=== PATIENT | female | born 1975 | race Caucasian/White ===

== ENCOUNTER → 2018-10-28 | Outpatient (CLI) | payer MEDICAID ==
[2016-07-10 17:39] VITALS: BP 144/90
[~2018-10-28] MED LIST: PRILOSEC 20MG20 MG PO
== END ==
LOC: RAD 14:10
DX: M17.0 Bilateral primary osteoarthritis of knee (principal); N64.4 Mastodynia; N63.0 Unspecified lump in unspecified breast; F41.9 Anxiety disorder, unspecified; F32.9 Major depressive disorder, single episode, unspecified; N76.0 Acute vaginitis; B37.3 Candidiasis of vulva and vagina

== ENCOUNTER → 2018-11-03 | Outpatient (CLI) | payer MEDICAID ==
[2016-07-10 17:39] VITALS: BP 144/90
== END ==
LOC: RAD 10:01
DX: M22.2X1 Patellofemoral disorders, right knee (principal); M25.562 Pain in left knee; M25.561 Pain in right knee

== ENCOUNTER → 2018-11-11 | Outpatient (CLI) | payer MEDICAID ==
[2016-07-10 17:39] VITALS: BP 144/90
[2018-11-11 09:07] LABS: POTASSIUM 4.3 mmol/L (3.6-5.0); TOTAL BILIRUBIN 0.5 mg/dL (0.2-1.3); TOTAL PROTEIN 6.9 g/dL (6.3-8.2)
[2018-11-11 09:28] LABS: EOS # 0.4 (0.04-0.40); EOS % 4.3 % (1.0-5.0); HEMATOCRIT 45.1 % (37.0-47.0); HEMOGLOBIN 14.6 g/dL (12.5-16.0); LYMPH# 2.7 (1.50-4.00); MEAN CELL VOLUME 86 fl (78-100); MEAN CORPUSCULAR HEMOGLOBIN 28 pg (27-31); MEAN CORPUSCULAR HGB CONC 32 g/dL (33-37); MEAN PLATELET VOLUME 11.7 fl (7.4-10.4); MONO # 0.6 (0.20-0.80); PLATELET COUNT 270 K/mm3 (130-400); RED BLOOD COUNT 5.27 M/mm3 (4.10-5.30); RED CELL DISTRIBUTION WIDTH 14.4 % (11.5-14.5); WHITE BLOOD COUNT 8.7 K/mm3 (4.8-10.8)
== END ==
LOC: LAB 08:37
PROVIDERS: Physician Assistant
DX: R63.5 Abnormal weight gain (principal); R53.83 Other fatigue; M25.561 Pain in right knee

== ENCOUNTER 2019-01-27 10:00 | Outpatient (RCR) | payer MEDICAID ==
[2016-07-10 17:39] VITALS: BP 144/90
[2019-02-09] MEDS ORDERED: XANAX0.5 M1 PO (11:13)
[2019-02-09] MEDS ORDERED: CIPRO500 M1 PO (11:14)
== END 2019-02-07 | disposition home or self-care (01) ==
LOC: PT
DX: M22.2X1 Patellofemoral disorders, right knee (principal); M22.2X2 Patellofemoral disorders, left knee; M62.89 Other specified disorders of muscle

== ENCOUNTER → 2019-03-16 | Outpatient (CLI) | payer MEDICAID ==
[2019-02-09 11:12] VITALS: BP 143/91
[~2019-03-16] MED LIST changes: +CIPRO500 M1 PO; +XANAX0.5 M1 PO
== END ==
LOC: PT 09:59 → EDSTATUS 10:00 → PT 10:00
DX: M22.2X2 Patellofemoral disorders, left knee (principal); M22.2X1 Patellofemoral disorders, right knee; S76.111A Strain of right quadriceps muscle, fascia and tendon, initial encounter

== ENCOUNTER 2020-07-31 10:30 | Outpatient (RCR) | payer MEDICAID ==
[2019-02-09 11:12] VITALS: BP 143/91
== END 2020-08-06 | disposition home or self-care (01) ==
LOC: PT
DX: Z98.890 Other specified postprocedural states (principal)

== ENCOUNTER 2020-08-07 09:58 | Outpatient (RCR) | payer MEDICAID ==
[2019-02-09 11:12] VITALS: BP 143/91
== END 2020-11-05 | disposition still patient (30) ==
LOC: PT
DX: M25.561 Pain in right knee (principal); Z98.890 Other specified postprocedural states

== ENCOUNTER → 2021-02-14 | Outpatient (CLI) | payer MEDICAID | LOC: LAB 15:15 | DX: Z02.0 Encounter for examination for admission to educational institution (principal) ==

== ENCOUNTER → 2021-02-15 | Outpatient (CLI) | payer MEDICAID | LOC: LAB 13:24 | DX: Z02.0 Encounter for examination for admission to educational institution (principal) ==

== ENCOUNTER → 2022-01-13 | Outpatient (CLI) | payer MEDICAID | LOC: LAB 16:32 | DX: R53.83 Other fatigue (principal); R51.9 Headache, unspecified; R68.83 Chills (without fever) ==